=== PATIENT | female | born 1980 | race Caucasian/White ===

== ENCOUNTER → 2022-08-13 | Outpatient (CLI) | payer OTHER ==
--- NOTE | 2022-08-14 03:04 | MR ---
EXAMINATION TYPE: MR ankle LT wo con DATE OF EXAM: 08/13/2022 COMPARISON: None HISTORY: Left ankle pain due to sprain 6 months ago Multiplanar multi echo imaging of the left ankle with no contrast. The ankle mortise is anatomic. Joint spaces are fairly normal at the ankle joint. The hindfoot is int act. There is small Achilles calcaneal spur. The Achilles tendon appears intact. Plantar fascia appea rs normal. The medial and lateral flexor tendons of the ankle appear intact. There is slight increased ankle mal nt fluid. The collateral ligaments are intact. There is a 12 x 6 mm synovial cyst at the anterior aspect of the talonavicular joint. There is mild subcutaneous edema on the dorsum of the lateral midfoot. The fifth metatarsal appears i ntact. No evidence of metatarsal fracture. Tarsal metatarsal joints appear intact. IMPRESSION: Mild subcutaneous edema on the lateral aspect of the foot. Mild increased ankle joint fluid suggestiv e of some nonspecific synovitis. No evidence of ligamentous tear. No fracture.
== END | disposition home or self-care (01) ==
LOC: RADMRIMAIN 18:02
PROVIDERS: ATTEND Podiatrist Foot & Ankle Surgery
DX: S93.402A Sprain of unspecified ligament of left ankle, initial encounter (principal); G57.62 Lesion of plantar nerve, left lower limb; M25.372 Other instability, left ankle

== ENCOUNTER → 2023-03-01 | Outpatient (CLI) | payer OTHER ==
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
== END | disposition home or self-care (01) ==
LOC: RADCTMAIN 18:25
PROVIDERS: ATTEND Internal Medicine
DX: U09.9 Post COVID-19 condition, unspecified (principal); R91.1 Solitary pulmonary nodule
CPT/HCPCS: 71260; Q9967

== ENCOUNTER 2023-06-16 11:57 | Emergency (ER) | payer OTHER ==
[2023-06-16 12:03] VITALS: RESP 18
[2023-06-16] MEDS ORDERED: IBUPROFEN 600 MG TAB PO STA (12:41)
--- NOTE | 2023-06-16 13:09 | XR ---
EXAMINATION TYPE: XR ankle complete LT DATE OF EXAM: 06/16/2023 COMPARISON: NONE HISTORY: Pain TECHNIQUE: 3 views of the left ankle are submitted for evaluation. FINDINGS: There is no evidence for fracture or dislocation. Ankle mortise is intact. Medial soft tiss ue swelling. IMPRESSION: 1. No evidence for acute fracture.
--- NOTE | 2023-06-16 13:54 | ED ---
Lower Extremity Injury HPI - General Chief Complaint: Extremity Injury, Lower Stated Complaint: Fall off Horse, Left ankle injury Time Seen by Provider: 06/16/23 12:05 Source: patient Mode of arrival: wheelchair Limitations: no limitations - History of Present Illness Initial Comments: Patient is a 42-year-old female who presents to the emergency department after she fell off of a horse. States that she was moving at "a decent speed" on the horse when the horse spooked and she fell off area she injured her left ankle. Has significant swelling and pain. Unsure if it got caught in the stirrup. She fell to the ground. Denies hitting her head. No neck or back pain. Has isolated left leg pain. Did not take anything for the pain. Has not been able to weight bear. Has significant swelling. No numbness or tingling. No foot or knee pain. Mild tenderness with ROM of the left groin. No other alleviating, precipitating or modifying factors - Related Data Allergies Allergy/AdvReac Type Severity Reaction Status Date / Time No Known Allergies Allergy Verified 06/16/23 12:03 Review of Systems ROS Statement: Those systems with pertinent positive or pertinent negative responses have been documented in the HPI. ROS Other: All systems not noted in ROS Statement are negative. Past Medical History Past Medical History: No Reported History History of Any Multi-Drug Resistant Organisms: None Reported Past Surgical History: Orthopedic Surgery Additional Past Surgical History / Comment(s): left acl Past Psychological History: No Psychological Hx Reported Smoking Status: Never smoker Past Alcohol Use History: None Reported Past Drug Use History: None Reported General Exam Limitations: no limitations General appearance: alert Head exam: Present: atraumatic, normocephalic, normal inspection Extremities exam: Present: other (Significant tenderness around the left ankle. Compartments are soft. 2+ DP and PT pulses. Intact sensation over the medial, lateral dorsal aspects of the leg) Course Vital Signs 06/16/23 06/16/23 12:00 14:10 Temperature 99 F 98.1 F Pulse Rate 105 H 88 Respiratory 18 18 Rate Blood Pressure 124/86 122/80 O2 Sat by Pulse 100 99 Oximetry Procedures - Orthopedic Splinting/Casting Injury #1 Side: left Lower Extremity Injury Location: short leg Lower Extremity Immobilizer: stirrup splint Other Orthopedic Equipment: crutches Medical Decision Making - Medical Decision Making Was pt. sent in by a medical professional or institution (MICHELLE Maradiaga, STUDIO OPERATION ENGINEER, urgent care, hospital, or penitentiary...) When possible be specific @ -No Did you speak to anyone other than the patient for history (EMS, parent, family, police, friend...)? What history was obtained from this source @ -No Did you review nursing and triage notes (agree or disagree)? Why? @ -I reviewed and agree with nursing and triage notes Were old charts reviewed (outside hosp., previous admission, EMS record, old EKG, old radiological studies, urgent care reports/EKG's, penitentiary records)? Report findings @ -No old charts were reviewed Differential Diagnosis (chest pain, altered mental status, abdominal pain women, abdominal pain men, vaginal bleeding, weakness, fever, dyspnea, syncope, headache, dizziness, GI bleed, back pain, seizure, CVA, palpatations, mental health, musculoskeletal)? @ -Differential Musculoskeletal Muscular strain, contusion, ligament sprain, fracture, arthritis, septic arthritis, bursitis, cellulitis, muscle spasm, nerve compression, DVT, arterial occlusion, herpes zoster, electrolyte abnormality, tumor.... This is not meant to be in all inclusive list EKG interpreted by me (3pts min.). @ -Not done X-rays interpreted by me (1pt min.). @ -Yes and demonstrates no acute fracture CT interpreted by me (1pt min.). @ -None done U/S interpreted by me (1pt. min.). @ -None done What testing was considered but not performed or refused? (CT, X-rays, U/S, labs)? Why? @ -None What meds were considered but not given or refused? Why? @ -None Did you discuss the management of the patient with other professionals (professionals i.e. MICHELLE Maradiaga, STUDIO OPERATION ENGINEER, lab, RT, psych nurse, social professionals, administrative support coordinator, teacher, state highway police officer, caseworker intake)? Give summary @ -No Was smoking cessation discussed for >3mins.? @ -No Was critical care preformed (if so, how long)? @ -No Were there social determinants of health that impacted care today? How? (Homelessness, low income, unemployed, alcoholism, drug addiction, transportation, low edu. Level, literacy, decrease access to med. care, correction, rehab)? @ -No Was there de-escalation of care discussed even if they declined (Discuss DNR or withdrawal of care, Hospice)? DNR status @ -No What co-morbidities impacted this encounter? (DM, HTN, Smoking, COPD, CAD, Cancer, CVA, ARF, Chemo, Hep., AIDS, mental health diagnosis, sleep apnea, morbid obesity)? @ -None Was patient admitted / discharged? Hospital course, mention meds given and route, prescriptions, significant lab abnormalities, going to OR and other pertinent info. @ -Upon arrival patient was placed into room 31. A thorough history and physical exam was performed. X-rays are performed which demonstrate no acute fracture. Significant soft tissue swelling. Patient is given a Motrin for pain control. I did discuss results with the patient. There is concern for ankle sprain and due to significant swelling I did recommend splint placement. Patient is placed in a stirrup splint. Instructed amply with crutches and not weight bear. Keep her ankle rested, iced and elevated. She is markedly the splint wet. She is alternate taking Motrin Tylenol for pain and follow up with her primary care doctor/orthopedic office for further evaluation. Patient was agreeable to this plan. Any new or worsening symptoms she is to return to the emergency room. Patient discharged in stable condition Undiagnosed new problem with uncertain prognosis? @ -No Drug Therapy requiring intensive monitoring for toxicity (Heparin, Nitro, Insulin, Cardizem)? @ -No Were any procedures done? @ -Stirrup splint application Diagnosis/symptom? @ -Acute fall from horse, acute left ankle pain, left ankle strain Acute, or Chronic, or Acute on Chronic? @ -Acute Uncomplicated (without systemic symptoms) or Complicated (systemic symptoms)? @ -Uncomplicated Side effects of treatment? @ -No Exacerbation, Progression, or Severe Exacerbation? @ -No Poses a threat to life or bodily function? How? (Chest pain, USA, [place], pneumonia, PE, COPD, DKA, ARF, appy, cholecystitis, CVA, Diverticulitis, Homicidal, Suicidal, threat to staff... and all critical care pts) @ -No Disposition Clinical Impression: Left ankle sprain, Fall Disposition: HOME SELF-CARE Condition: Stable Instructions (If sedation given, give patient instructions): Ankle Sprain (ED) Additional Instructions: Please continue to wear the brace. Ambulate with crutches and do not weight- bear. Rest, ice and elevate the extremity. Alternate taking Motrin and Tylenol every 4 hours. Do not get the splint wet. Follow up with the orthopedic office for further treatment options Is patient prescribed a controlled substance at d/c from ED?: No Referrals: Leanne Crowder MD [Primary Care Provider] - 1-2 days Porfirio Jang MD [Medical Doctor] - 1-2 days Time of Disposition: 13:53
[2023-06-16 14:11] VITALS: BP 122/80; PULSE 88; TEMP 98.1
== END 2023-06-16 14:10 | disposition home or self-care (01) ==
LOC: EC 11:57
DX: S93.402A Sprain of unspecified ligament of left ankle, initial encounter (principal); S96.912A Strain of unspecified muscle and tendon at ankle and foot level, left foot, initial encounter; V80.010A Animal-rider injured by fall from or being thrown from horse in noncollision accident, initial encounter; Y93.52 Activity, horseback riding
CPT/HCPCS: 29515; 99284

== ENCOUNTER → 2024-08-07 | Outpatient (CLI) | payer OTHER ==
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
== END ==
LOC: RADCTMAIN 16:34
PROVIDERS: ATTEND Internal Medicine
CPT/HCPCS: 70450; 72125

== ENCOUNTER → 2024-08-28 | Outpatient (CLI) | payer OTHER ==
--- NOTE | 2024-08-31 10:04 | MM ---
Reason for Exam: Screening (asymptomatic). Last mammogram was performed 2 year(s) and 10 month(s) ago. Patient History: Menarche at age 11. Patient has no children. Last menstrual period: 07/02/2024 Risk Values: Marcela 5 year model risk: 0.9%. NCI Lifetime model risk: 10.7%. Prior Study Comparison: 08/23/2020 Bilateral Diagnostic Mammogram, Unknown. 10/31/2021 Bilateral Diagnostic Mammogram, Unknown. 11/07/2021 Left US breast workup limited LT, Unknown. Tissue Density: The breasts are heterogeneously dense, which may obscure small masses. Findings: Analyzed By CAD. Right breast: There is no suspicious group of microcalcifications or new suspicious mass. Left breast: There is no suspicious group of microcalcifications or new suspicious mass. Overall Assessment: Negative, BI-RAD 1 Management: Screening Mammogram of both breasts in [address] [facility] will attempt to contact patient to return for supplemental views and ultrasound if indicated. Patient should continue monthly self-breast exams. A clinical breast exam by your physician is recommended on an annual basis. This exam should not preclude additional follow-up of suspicious palpable abnormalities. Note on Marcela scores and lifetime risk: 1. A Marcela score greater than 3% is considered moderate risk. If this is the case, consider specialist referral to assess eligibility for a risk reducing agent. 2. If overall lifetime risk for the development of breast cancer is 20% or higher, the patient may qualify for future screening with alternating mammogram and breast MRI. [facility], , 08/31/2024 10:01 AM. Electronically signed and approved by: Mau Skinner DO
== END | disposition home or self-care (01) ==
LOC: RADMAMWWP 07:41
PROVIDERS: ATTEND Obstetrics & Gynecology
DX: Z12.31 Encounter for screening mammogram for malignant neoplasm of breast (principal); R92.333 Mammographic heterogeneous density, bilateral breasts
CPT/HCPCS: 77067

== ENCOUNTER → 2024-08-28 | Outpatient (CLI) | payer OTHER ==
--- NOTE | 2024-08-29 20:24 | CT ---
EXAMINATION TYPE: CT chest w con DATE OF EXAM: 08/28/2024 COMPARISON: HISTORY: f/u lung nodule. CT DLP: 465 mGycm Automated exposure control for dose reduction was used. CONTRAST: CT scan of the chest is performed with IV Contrast, patient injected with 100ml mL of Isovue 300. FINDINGS: LUNGS: The lungs are grossly clear, there is no concerning parenchymal mass identified. There are co uple of scattered sub-5 mm pulmonary nodule stable relative to the prior study. No new nodules identi fied. There is no pleural effusion or pneumothorax seen. The tracheobronchial tree is patent. MEDIASTINUM: There are no greater than 1 cm hilar or mediastinal lymph nodes. No pericardial effusi on is seen. Thoracic aorta is of normal caliber. The heart is not enlarged. UPPER ABDOMEN: No significant abnormality appreciated. OTHER: No additional significant abnormality is seen. IMPRESSION: There are couple of scattered sub-5 mm pulmonary nodule stable relative to the prior brandon dy. No new nodules identified. [facility], , 08/29/2024 8:22 PM
== END | disposition home or self-care (01) ==
LOC: RADCTMAIN 07:17
PROVIDERS: ATTEND Internal Medicine
DX: R91.1 Solitary pulmonary nodule (principal); R91.8 Other nonspecific abnormal finding of lung field
CPT/HCPCS: 71260; Q9967